=== PATIENT | male | born 1935 | race Caucasian/White ===

== ENCOUNTER 2022-06-09 03:00 | Inpatient (IN) | payer MEDICARE, SELFPAY ==
[2022-06-09] VITALS (16 sets, daily range): BP systolic 140–223; BP diastolic 70–138; PULSE 78–112; RESP 18–24; TEMP 36.5–36.9; O2SAT 94–100; BMI 33.7
--- NOTE | ~2022-06-09 | XR_ITS ---
EXAMINATION: XR chest 2V Exam Date/Time: 06/09/2022 18:35 CDT HISTORY: SOB, rib fx Comparison: None available. RESULT: Lines, tubes, and devices: None. Lungs and pleura: Right middle lobe atelectasis. Bilateral costophrenic angle blunting. Bilateral in terstitial opacities. Cardiothymic silhouette: Stable. Other: No acute osseous or upper abdominal finding. IMPRESSION: Right middle lobe atelectasis, infection not excluded. Likely small bilateral pleural effusions. Diff use interstitial opacities may reflect edema, bronchiolitis, or both. No rib fractures detected. Cons ider radiographs of the ribs for better evaluation. Reviewed, dictated and finalized at location K. IMPRESSION: Right middle lobe atelectasis, infection not excluded. Likely small bilateral p leural effusions. Diffuse interstitial opacities may reflect edema, bronchiolit is, or both. No rib fractures detected. Consider radiographs of the ribs for be tter evaluation.
--- NOTE | ~2022-06-09 | CT_ITS ---
EXAMINATION: CTA chest PE abdomen pel DATE: 06/10/2022 17:49 INDICATION: SOB, concern for DVT TECHNIQUE: Computed tomography angiography (CTA) of the chest was performed with 100 mL Omnipaque-350 intravenous contrast timed to evaluate the pulmonary arteries, followed by portal venous phase imagi ng of the abdomen and pelvis. Coronal maximum intensity projection 3D-reconstructions were created by the technologist. The dose-length product (DLP) was 2446.61 mGy-cm. Automated exposure control and i terative reconstruction technique were employed. COMPARISON: None. FINDINGS: CTPA: Lung parenchyma and airways: Senescent changes. Pleura: Unremarkable. Thoracic inlet, axillae and chest wall: Unremarkable. Thoracic aorta: Aortic ectasia and moderate arch calcification. Mediastinum: Normal. Heart and pericardium: Cardiomegaly. Coronary artery calcifications: Moderate. Thoracic bones: No acute osseous finding. Pulmonary arteries: Study quality: Adequate. No pulmonary emboli detected. ABDOMEN AND PELVIS: Liver: Normal. Biliary/Gallbladder: Gallbladder is normal. No bile duct dilation. Pancreas: No mass or duct dilation. Spleen: Normal. Adrenals:No mass. Kidneys: No mass, stone, or hydronephrosis. GI tract: No small or large bowel dilation. Normal appendix. Diverticulosis without diverticulitis. Mesentery/Peritoneum: No ascites, mass, or free air. Inflammatory stranding and fluid tracking along the inferior aspect of the lateral conal fascia into the periureteral and perivesicular spaces on the left. Retroperitoneum: No mass. Atherosclerotic abdominal aortic and/or arterial calcifications. Pelvis: The bladder is decompressed by a Monroy. Prostatomegaly. Soft Tissues: Left inguinal lymphadenopathy. Abdominopelvic bones: No acute osseous finding. IMPRESSION: No CT evidence of acute pulmonary embolus. Lower abdominal/pelvic peritoneal reflection inflammatory change and fluid, of uncertain significance, possibly postsurgical. Reviewed, dictated and finalized at location K. IMPRESSION: No CT evidence of acute pulmonary embolus. Lower abdominal/pelvic peritoneal re flection inflammatory change and fluid, of uncertain significance, possibly pos tsurgical.
--- NOTE | ~2022-06-09 | US_ITS ---
EXAMINATION: US venous doppler [facility] DATE: 06/10/2022 15:26 INDICATION: Left thigh erythema. TECHNIQUE: Grayscale ultrasound images without and with compression and Doppler ultrasound images of the left lower extremity veins were obtained. COMPARISON: None. FINDINGS: The visualized portions of left common femoral vein, profunda (deep) femoral vein, femoral vein, popl iteal vein, peroneal veins, posterior tibial veins, and greater saphenous vein outflow are patent. IMPRESSION: 1. No deep venous thrombosis. Reviewed, dictated and finalized at location A.
--- NOTE | ~2022-06-09 | CT_ITS ---
EXAMINATION: CT abdomen pelvis wo con DATE: 06/12/2022 14:34 INDICATION: Left retroperitoneal and left pelvic edema. TECHNIQUE: Computed tomography (CT) of the abdomen and pelvis was performed without intravenous contr ast. Automated exposure control and iterative reconstruction technique were employed. The dose-length product was 1590.09 mGy-cm. COMPARISON: CT abdomen and and pelvis 06/10/2022, 06/08/22 FINDINGS: The visualized portions of the lung bases demonstrate septal thickening with a peripheral p redominance associated with groundglass opacities, consistent with chronic interstitial lung disease. A calcified left lung nodule is consistent with old granulomatous disease. There is a 6 mm nodule at minor fissure, likely benign. No pleural effusion. Cardiomegaly is noted. There are coronary artery calcifications. The calcifications aortic valve. No pericardial effusion. The liver demonstrates surf carine nodularity. There is contrast in the gallbladder, which is normal in size. Calcifications in the spleen are consistent with old granulomatous disease. The pancreas and adrenal glands are normal. The re are persistent contrast nephrograms bilaterally, consistent with decreased kidney function. There is a left inguinal hernia containing fat. The bladder is decompressed by a Monroy catheter. The prosta te is mildly enlarged. Stool distends the rectum. There is diverticulosis of the colon without eviden ce of diverticulitis. The appendix is normal. There is asymmetric edema in the left retroperitoneum a nd left extraperitoneal pelvis. There is mild left inguinal lymphadenopathy, likely reactive. There i s no free intraperitoneal fluid. There are bridging endplate osteophytes at multiple levels in the sp ine, consistent with diffuse idiopathic skeletal hyperostosis (DISH). There is severe lumbar spondylo sis. IMPRESSION: 1. Asymmetric edema in the left retroperitoneum and left extraperitoneal pelvis, stable from 06/08/22. 2. Mild left inguinal lymphadenopathy, likely reactive. 3. Left inguinal hernia containing fat. 4. Liver surface nodularity suspicious for cirrhosis. 5. Mild chronic interstitial lung disease. Reviewed, dictated and finalized at location A. IMPRESSION: 1. Asymmetric edema in the left retroperitoneum and left extraperitoneal pelvis , stable from 06/08/22. 2. Mild left inguinal lymphadenopathy, likely reactive. 3. Left inguinal hernia containing fat. 4. Liver surface nodularity suspicious for cirrhosis. 5. Mild chronic interstitial lung disease.
--- NOTE | ~2022-06-09 | XR_ITS ---
EXAMINATION: XR chest 1V portable DATE: 06/10/2022 00:48 INDICATION: Difficulty breathing. TECHNIQUE: A single frontal view of the chest was obtained. COMPARISON: Chest 2 views 06/09/2022 FINDINGS: There are airspace and interstitial opacities in the lungs predominantly involving the mid and lower lung zones with a peripheral predominance. There may be a small left pleural effusion. No p neumothorax. The heart size is normal. There are suture anchors in left humeral head. IMPRESSION: 1. Stable diffuse lung disease, consistent with pulmonary edema versus pneumonia versus chronic inter stitial lung disease. 2. Possible small left pleural effusion. Reviewed, dictated and finalized at location A. IMPRESSION: 1. Stable diffuse lung disease, consistent with pulmonary edema versus pneumoni a versus chronic interstitial lung disease. 2. Possible small left pleural effusion.
--- NOTE | 2022-06-09 02:47 | ADMGEN ---
This patient, George Vallejo, was admitted to IMU Room 206-01 on 06/09/22 at 0223. Patient/family oriented to hospital policies and general routines including ID bracelet, bed and alarms, visiting hours, pain management, procedures, bathroom and other care routines, personal items, smoking policy, room service/diet, and visiting hours. Information on how to activate the Rapid Response Team has been discussed. Patient/Family are encouraged to report perceived risks to care and to ask questions if they do not understand what they are told or what they should do.
[2022-06-09 05:40] LABS: Hematocrit 42.6 % (42.0-52.0); Mean Corpuscular HGB Conc 32.9 g/dl (32-36); Mean Corpuscular Hemoglobin 30.8 pg (26-34); Mean Corpuscular Volume 93.8 fl (80-100); Mean Platelet Volume 10.8 fl (7.4-10.4); Platelet Count Result 163 k/mm3 (150-375); Red Blood Count 4.54 M/mm3 (4.6-6.20); White Blood Count 21.2 K/mm3 (4.5-10.0)
--- NOTE | 2022-06-09 05:41 | PM.IMHP ---
H&P: HPI History of Present Illness Date/Time: 06/09/22 05:41 Chief Complaint: Fall, shortness of breath Narrative: 86-year-old male with a past medical history of chronic atrial fibrillation, borderline diabetes mellitus, essential hypertension, hyperlipidemia, cirrhosis and untreated obstructive sleep apnea who presented to the ER at [facility] in [place] after having a fall, shortness of breath and fever at home. Source of information comes from patient who is a fair historian and records from the transferring hospital. The patient could not really tell me exactly why he went to the outside ER. He stated that the day before he went to the ER he had been rolling around in a chair and had reached for something on a table and had tip to the chair over and fell hard. He does not remember hitting his head or losing consciousness. Patient denied having any chest pain or shortness of breath at the time of my evaluation but imaging at the outside facility demonstrated left 6th and 7th rib fractures. On further questioning he says that he can feel something there but states that is not necessarily painful. He reports that he has been having chest congestion for several months ever since he had COVID. He reports that he is mildly short of breath but does not think that this is much changed recently. He reports that he has chronic nasal congestion that is unchanged for the ?last 70 years.? He denies any history of coronary artery disease but does have history of peripheral vascular disease. He had a recent femoral popliteal bypass at [facility]. He reports he had recent ultrasounds of his right lower extremity that confirm patency of the graft he has not been having any leg pain. He denies any back pain despite having a large bruise across the upper back extending from his left upper trap down to his right mid scapula. He denies any changes in bowel habits. He denies any rashes. ER physician from outside facility noted erythema to the left upper thigh with some increased warmth. The patient denies any known injury or history of infection previously. He has not had any dysuria. Does have frequent urinary frequency specially at night. He denies any weak urine stream hematuria or dysuria. He does have obstructive sleep apnea but refuses CPAP. At the outside ED ER the patient received 1 dose of Rocephin 1 dose of Zosyn and 1 dose of vancomycin. He also received 1 dose of IV Lopressor with improvement in his heart rate from the 120s down to 77. He had a CT of the abdomen and pelvis with contrast that demonstrated mild amount of free fluid in the anterior left pelvis and adjacent to left external iliac artery and vein extending anterior to left psoas muscle. Mild fluid stranding noted in the left inguinal region into the proximal anterior medial thigh that is partially imaged. There is enlarged lymph nodes in this distribution. Small left inguinal hernia containing only fat similar prior exam. Colonic diverticulosis without surrounding inflammation. Acute nondisplaced fractures left anterior 7th and anterior lateral 6th rib with mild subcutaneous contusion. Noncontrast CT of the chest demonstrated rib fractures, linear atelectasis and scarring in the lung bases, no evidence of pneumonia or pneumothorax, minimal interstitial lung disease consistent with prior exam, 1.1 cm nodule in the right minor fissure unchanged. Cardiomegaly, small hiatal hernia, hepatics cyst, hepatic steatosis and DJD. Labs from outside facility were reviewed including lactic acid of 3.9 with repeat lactic of 2 patient received total 1.5 L of [place] 06583 hemoglobin 14.5 platelet count [id number] sodium 137 potassium 3.8 chloride 99 CO2 23 BUN 34 creatinine 1.89 up from the patient's baseline of 1.17 glucose was 202 troponin at the outside facility was 168 with repeat of 312. EKG: AFib RVR Review of Systems Review of Systems: 12 systems were re
[2022-06-09 05:42] LABS: INR 1.6; Prothrombin Time 18.5 Seconds (11.1-14.7)
[2022-06-09 05:43] LABS: Alanine Aminotransferase 43 U/L (6-50); Albumin Level 3.8 g/dL (3.5-5.1); Alkaline Phosphatase 52 U/L (38-126); Anion Gap 10 mmol/L (8-16); Aspartate Amino Transferase 100 U/L (17-59); Bilirubin,Total 1.2 mg/dL (0.2-1.3); Blood Urea Nitrogen 38 mg/dL (9-20); Calcium 8.3 mg/dL (8.4-10.2); Carbon Dioxide 27 mmol/L (22-30); Chloride 98 mmol/L (98-107); Estimated CRCL calculation 46 ml/min; Estimated Glomerular Filt Rate 48; Glucose 365 mg/dL (65-110); Magnesium 1.8 mg/dL (1.6-2.3); Phosphorus 3.4 mg/dL (2.5-4.5); Potassium 3.9 mmol/L (3.4-5.0); Sodium 135 mmol/L (137-145)
[2022-06-09] MEDS: SODIUM CHLORIDE 0.9% IV 1,000 ML 75 ML IV CONT (05:48)
[2022-06-09] MEDS: metroNIDAZOLE 500 MG/ISO 100ML 500 MG/100 ML BAG 100 MG IVPB ×3 (05:48→20:26)
[2022-06-09 06:02] LABS: Band Neutrophils Percent 16 % (0-6); Lymphocytes Absolute Manual 0.84 K/mm3 (1.1-4.5); Monocytes Absolute Manual 0.21 K/mm3 (0.1-0.90); Monocytes Percent Manual 1 % (3-9); Neutrophils Absolute Manual 20.14 K/mm3 (1.3-6.7); Neutrophils Percent Manual 79 % (46-73); Ovalocytes 1+ (NORMAL); Platelet Estimate Adequate (Adequate); Poikilocytosis 1+ (NORMAL); Polychromasia 1+ (NORMAL); Total Cells Counted 100
[2022-06-09 06:03] LABS: Anisocytosis 1+ (NORMAL)
[2022-06-09 06:20] LABS: Lactic Acid Reflex 1.5 mmol/L (0.7-2.0)
[2022-06-09 07:54] LABS: Troponin I 0.141 ng/mL (0.000-0.034)
--- NOTE | 2022-06-09 08:19 | ECG_ITS ---
Measurements Intervals [place] Rate: 93 P: NC: 0 QRS: -22 QRSD: 96 T: 60 QT: 334 QTc: 417 Interpretive Statements ATRIAL FIBRILLATION CANNOT RULE OUT INFERIOR MYOCARDIAL INFARCTION, PROBABLY OLD CANNOT RULE OUT ANTEROSEPTAL MYOCARDIAL INFARCTION , PROBABLY OLD ABNORMAL ECG NO PREVIOUS ECG AVAILABLE FOR COMPARISON Electronically Signed On 06-09-2022 16:27:34 CDT by Ronny Harper M.D.
[2022-06-09 08:23] LABS: Glucose Point of Care 350 mg/dl (65-105)
[2022-06-09 08:59] LABS: Troponin I 0.116 ng/mL (0.000-0.034)
[2022-06-09] MEDS: APIXABAN 5 MG TABLET PO ×2 (12:02→17:34)
[2022-06-09] MEDS: ASPIRIN 81 MG ENTERIC TABLET PO (12:02)
[2022-06-09] MEDS: INSULIN ASPART (*BKC) 100 UNITS/ML SUB-Q ×2 (12:19→17:33)
[2022-06-09 12:34] LABS: Glucose Point of Care 399 mg/dl (65-105)
--- NOTE | 2022-06-09 12:49 | PM.CNCAR ---
Assessment and Plan Assessment and plan (1) Elevated troponin level not due myocardial infarction: Code(s): R77.8 - Other specified abnormalities of plasma proteins Status: Acute Assessment and Plan: Most likely type 2 infarction setting of sepsis, atrial fibrillation with RVR, acute on chronic kidney injury not acute coronary syndrome and/or plaque rupture. 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 He remains on anticoagulation with Eliquis. Without patient to recover clinically. Depending on his history and clinical course ischemic evaluation may be considered most likely an outpatient basis if not performed previously. (2) Permanent atrial fibrillation with rapid ventricular response: Code(s): I48.21 - Permanent atrial fibrillation Status: Acute Assessment and Plan: Heart rate reasonably well controlled male after IV metoprolol. Will continue monitor on telemetry to determine if AV barak blocking atrial be required. Patient has been control without AV barak blocking agents as an outpatient. Check 2D echocardiogram to assess LV size/function, valve pathology, pulmonary pressures and chamber size. Recommendation to follow. 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 (4) Acute on chronic kidney failure: Code(s): N17.9 - Acute kidney failure, unspecified; N18.9 - Chronic kidney disease, unspecified Status: Acute Assessment and Plan: Improving with IV fluids. Continue to monitor closely. (5) Cellulitis of left thigh: Code(s): L03.116 - Cellulitis of left lower limb Status: Acute Assessment and Plan: Management Per primary service. IV antibiotics. Cultures pending. Supportive care. (6) Severe sepsis: Code(s): A41.9 - Sepsis, unspecified organism; R65.20 - Severe sepsis without septic shock Status: Acute Assessment and Plan: As above. Significant leukocytosis, afebrile since admission he has been hemodynamically stable. (7) Peripheral artery disease: Code(s): I73.9 - Peripheral vascular disease, unspecified Status: Acute Assessment and Plan: Status post right lower extremity fem-pop bypass per report. Awaiting further cardiovascular records. History of Present Illness History of Present Illness Consult date/time: Date of service: 06/09/22 12:49 Requesting physician: Rosalva Moya DO Consult reason: atrial fibrillation and Other (Elevated troponin) Reason For Visit: Severe Sepsis,Cellulitis L thigh,Afib w/RVR Narrative: Patient is a very pleasant 86-year-old male with a past medical history significant for persistent atrial fibrillation, peripheral arterial disease status post right lower extremity femoral popliteal bypass February 2022 at [facility] by Dr. Balderas, diabetes mellitus, hypertension, hyperlipidemia, history of untreated LAURA without reported history of CAD and/or CHF who presented to the emergency department as a transfer from [facility] in [place] after complaints of fall, fever and shortness of breath. Date prior to presentation he had fallen over reaching for something on the table after chair tipped following fairly hard. He did not hit his head or lose consciousness. He denies shortness of breath or chest pain upon my questioning. Per electronic medical record review of outside imaging suggested left 6th and 7th rib fractures for which he is generally not aware. He admits to some shortness of breath in the past but no changes of late. He recalls having a heart catheterization but did does not recall what
--- NOTE | 2022-06-09 13:33 | P.PNIM_ITS ---
Progress Note: A&P Assessment and Plan (1) Severe sepsis: Code(s): A41.9 - Sepsis, unspecified organism; R65.20 - Severe sepsis without septic shock Status: Acute Assessment and Plan: Present on admission and supported by leukocytosis, tachypnea, tachycardia, lactic acidosis, acute kidney failure * Blood cultures were obtained from the outside facility and can be followed up by contacting that facility. * Repeat blood cultures collected at this facility are pending * Continue with gentle IV fluid rehydration * Continue IV antibiotics (2) Cellulitis of left thigh: Code(s): L03.116 - Cellulitis of left lower limb Status: Acute Assessment and Plan: The patient is diabetic and has severe sepsis due to left thigh cellulitis. * Antibiotics per antibiotic stewardship guidelines include cefepime, Flagyl and vancomycin. * Monitor the area closely * Supportive care. Analgesics available as needed (3) Acute on chronic kidney failure: Code(s): N17.9 - Acute kidney failure, unspecified; N18.9 - Chronic kidney disease, unspecified Status: Acute Assessment and Plan: Patient's baseline creatinine is 1.17 per report from ER physician. Creatinine at the outside facility was 1.89. * Kendrick to be secondary to severe sepsis * Creatinine is 1.4 today * Continue with IV fluid hydration. 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 Qualified Code(s): E11.65 - Type 2 diabetes mellitus with hyperglycemia Code(s): E11.65 - Type 2 diabetes mellitus with hyperglycemia Status: Acute Assessment and Plan: Blood sugars have been elevated after receiving a 1 time dose of IV Solu-Medrol outside facility * Continue Accu-Cheks, sliding scale insulin, hypoglycemic protocol * Diabetic carbohydrate consistent diet * Add 6 units NovoLog scheduled with meals * Check updated A1c (5) Permanent atrial fibrillation with rapid ventricular response: Code(s): I48.21 - Permanent atrial fibrillation Status: Acute Assessment and Plan: The patient's heart rate is currently controlled. * Continue to monitor on telemetry. * Patient is not on rate/rhythm control medication at home * Received 1 time dose of Lopressor at outside facility with no recurrence of tachycardia. Suspect tachycardia was related to fevers/severe sepsis (6) Elevated troponin level not due myocardial infarction: Code(s): R77.8 - Other specified abnormalities of plasma proteins Status: Acute Assessment and Plan: Kendrick to be due to strain from patient's severe sepsis. * Appreciate cardiology consultation. (7) Rib fracture: Code(s): S22.39XA - Fracture of one rib, unspecified side, initial encounter for closed fracture Status: Acute Assessment and Plan: Secondary to fall * Imaging at outside facility showed acute nondisplaced fractures of the left anterior 7th and anterolateral 6th rib with mild subcutaneous contusion * Supportive care * Incentive spirometry (8) Peripheral artery disease: Code(s): I73.9 - Peripheral vascular disease, unspecified Status: Acute Assessment and Plan: Patient is status post right lower extremity fem-pop bypass * Reports recent ultrasound of right lower extremity that confirmed patency of the graft * No pain in lower extremities
--- NOTE | 2022-06-09 13:33 | PM.IMPN ---
Progress Note: A&P Assessment and Plan (1) Severe sepsis: Code(s): A41.9 - Sepsis, unspecified organism; R65.20 - Severe sepsis without septic shock Status: Acute Assessment and Plan: Present on admission and supported by leukocytosis, tachypnea, tachycardia, lactic acidosis, acute kidney failure Blood cultures were obtained from the outside facility and can be followed up by contacting that facility. Repeat blood cultures collected at this facility are pending Continue with gentle IV fluid rehydration Continue IV antibiotics (2) Cellulitis of left thigh: Code(s): L03.116 - Cellulitis of left lower limb Status: Acute Assessment and Plan: The patient is diabetic and has severe sepsis due to left thigh cellulitis. Antibiotics per antibiotic stewardship guidelines include cefepime, Flagyl and vancomycin. Monitor the area closely Supportive care. Analgesics available as needed (3) Acute on chronic kidney failure: Code(s): N17.9 - Acute kidney failure, unspecified; N18.9 - Chronic kidney disease, unspecified Status: Acute Assessment and Plan: Patient's baseline creatinine is 1.17 per report from ER physician. Creatinine at the outside facility was 1.89. [place] to be secondary to severe sepsis Creatinine is 1.4 today Continue with IV fluid hydration. 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 use: without marine oil terminal superintendent use Qualified Code(s): E11.65 - Type 2 diabetes mellitus with hyperglycemia Code(s): E11.65 - Type 2 diabetes mellitus with hyperglycemia Status: Acute Assessment and Plan: Blood sugars have been elevated after receiving a 1 time dose of IV Solu-Medrol outside facility Continue Accu-Cheks, sliding scale insulin, hypoglycemic protocol Diabetic carbohydrate consistent diet Add 6 units NovoLog scheduled with meals Check updated A1c (5) Permanent atrial fibrillation with rapid ventricular response: Code(s): I48.21 - Permanent atrial fibrillation Status: Acute Assessment and Plan: The patient's heart rate is currently controlled. Continue to monitor on telemetry. Patient is not on rate/rhythm control medication at home Received 1 time dose of Lopressor at outside facility with no recurrence of tachycardia. Suspect tachycardia was related to fevers/severe sepsis (6) Elevated troponin level not due myocardial infarction: Code(s): R77.8 - Other specified abnormalities of plasma proteins Status: Acute Assessment and Plan: [place] to be due to strain from patient's severe sepsis. Appreciate cardiology consultation. (7) Rib fracture: Code(s): S22.39XA - Fracture of one rib, unspecified side, initial encounter for closed fracture Status: Acute Assessment and Plan: Secondary to fall Imaging at outside facility showed acute nondisplaced fractures of the left anterior 7th and anterolateral 6th rib with mild subcutaneous contusion Supportive care Incentive spirometry (8) Peripheral artery disease: Code(s): I73.9 - Peripheral vascular disease, unspecified Status: Acute Assessment and Plan: Patient is status post right lower extremity fem-pop bypass Reports recent ultrasound of right lower extremity that confirmed patency of the graft No pain in lower extremities Subjective Date/time seen: 06/09/22 13:33 Interval history: Date of service: 06/09/2022 George Vallejo is an 86 year old male with a history of hypertension, peripheral artery disease, chronic atrial fibrillation on systemic anticoagulation, cirrhosis, HTN, untreated LAURA who is seen in follow up for sepsis secondary to cellulitis. He denies SOB. Endorses nonproductive cough. Endorses sinus congestion. He previously had fevers and chills th
[2022-06-09 16:43] LABS: Glucose Point of Care 428 mg/dl (65-105)
[2022-06-09] MEDS: INSULIN ASPART (*BKC) 100 UNITS/ML 6 UNITS SUB-Q (17:33)
[2022-06-09 17:39] LABS: Vancomycin Random 7.7 ug/mL (10-20)
[2022-06-09 18:34] LABS: Hemoglobin A1C 7.1 % (<5.7)
[2022-06-09 20:00] LABS: Glucose Point of Care 323 mg/dl (65-105)
[2022-06-09] MEDS: ATORVASTATIN 20 MG TABLET PO (20:28)
[2022-06-09] MEDS: FLUTICASONE PROPIONATE 0.05% NA SPR 16 GM BTL (*BKC) 1 SPRAY NASAL (20:29)
[2022-06-09] MEDS: INSULIN GLARGINE (*BKC) 100 UNITS/ML 17 UNITS SUB-Q (20:29)
[2022-06-10] VITALS (18 sets, daily range): BP systolic 101–207; BP diastolic 60–120; PULSE 59–137; RESP 14–28; TEMP 36.2–36.7; O2SAT 93–99
--- NOTE | 2022-06-10 | ECHO_ITS ---
Patient Info Name: George Vallejo Age: 86 years : 1935 Gender: Male Ht: 72 in Wt: 248 lbs BSA: 2.43 m2 HR: 101 bpm BP: 138 / 92 mmHg Heart Rhythm: Atrial Fibrillation Technical Quality: Fair Exam Date: 06/10/2022 10:47 AM Exam Location: [facility] Pulmonary Patient Status: Inpatient Admit Date: 06/09/2022 Staff Ordering Physician: Jasmyn Amado PA-C Document Imaging Specialist: Melinda Albert RDCS Attending Provider: Jasmyn Amado PA-C Referring Physician: Ingris CHAN; Exam Type: CA echo dop color flow w con Study Info Indications J81.0 - Acute pulmonary edema Complete two-dimensional, color flow and Doppler transthoracic echocardiogram is performed with contrast to opacify the left ventricle and to improve the deliniation of the left ventricle endocardial borders. Contrast/Agitated Saline Contrast/Ag. Saline: Definity Amount: 3.00 ml Administered By: Melinda Albert RDCS Existing IV Access: Yes IV Access Condition: patent with no signs of infiltration Summary 1. Technically difficult study with limited views. 2. Left ventricular chamber dimension is normal. 3. Left ventricular systolic function is normal, estimated at 65-70%. 4. There is no increased left ventricular wall thickness. 5. Left atrial chamber dimension is moderately enlarged. 6. Right atrial chamber dimension is severely enlarged. 7. There is no aortic valve stenosis with a peak velocity of 160.98 cm/s, mean gradient of 4 mmHg, and aortic valve area of 2.44 cm2. 8. There is no aortic valve regurgitation. 9. There is mild aortic valve calcification. 10. There is trace tricuspid valve regurgitation. 11. No pulmonary hypertension, estimated pulmonary arterial systolic pressure is 18 mmHg. 12. There is trace mitral valve regurgitation. Left Ventricle Left ventricular chamber dimension is normal. Left ventricular systolic function is normal, estimated at 65-70%. There is no increased left ventricular wall thickness. The left ventricular diastolic function is indeterminate. Technically difficult study with limited views. Right Ventricle Right ventricular chamber dimension is normal. Right ventricular systolic function is normal. Left Atria Left atrial chamber dimension is moderately enlarged. Right Atria Right atrial chamber dimension is severely enlarged. Aortic Valve The aortic valve is probable trileaflet. There is no aortic valve stenosis with a peak velocity of 160.98 cm/s, mean gradient of 4 mmHg, and aortic valve area of 2.44 cm2. There is no aortic valve regurgitation. There is mild aortic valve calcification. Pulmonic Valve The pulmonic valve is not well visualized. There is trace pulmonic regurgitation. Mitral Valve The mitral valve has thickened leaflets. There is trace mitral valve regurgitation. The mitral valve annulus is mildly calcified. Tricuspid Valve The tricuspid valve leaflets are normal. There is trace tricuspid valve regurgitation. No pulmonary hypertension, estimated pulmonary arterial systolic pressure is 18 mmHg. Pericardium/Pleural The pericardium appears normal. There is no pericardial effusion. Inferior Vena Cava Dilated inferior vena cava with >50% collapse upon inspiration consistent with elevated right atrial pressure, 10 mmHg. Aorta The aortic root size at the sinus of Valsalva is normal. There is moderate aortic atherosclerosis. Left Ventricular Outflow Tract
[2022-06-10] MEDS: hydrALAZINE HCL 20 MG/ML VIAL 10 MG IV PUSH (00:04)
[2022-06-10] MEDS: ACETAMINOPHEN 325 MG TABLET 650 MG PO (00:04)
[2022-06-10] MEDS: IPRATROPIUM BR 0.02% INH SOLN 0.5 MG/2.5 ML VIAL INHALATION (00:15)
[2022-06-10] MEDS: ALBUTEROL SULFATE NEB 2.5 MG/3 ML INH INHALATION ×2 (00:15→00:18)
[2022-06-10] MEDS: ALBUTEROL SULFATE NEB 2.5 MG/3 ML INH 15 MG INHALATION (00:34)
[2022-06-10] MEDS: NITROGLYCERIN OINTMENT 1 INCH DOSE TRANSDERM (00:36)
[2022-06-10] MEDS: METOPROLOL TARTRATE INJ 5 MG/5 ML VIAL (00:51)
--- NOTE | 2022-06-10 00:54 | PCRCNOTE ---
Addendum entered by Deb Brenner, DOOR REPAIRER BUS 06/10/22 01:30: M1A1 Tank Crewman initially called to the room for a stat prn HHN. Pt found to be extremely sob with labored breathing, grunting, using accessory muscles. Little air movement noted upon auscultation with faint expiratory wheezes. 5mg of albuterol given with little to no improvement noted(hour long 15mg hhn initiated as well). MD then called to bedside for further evaluation and testing. Original Note: Hour long HHN discontinued when CXR confirms flash pulm edema. Md at bedside. Pt's Resp status improves significantly with IV lasix. Pt now resting more comfortably on 3l/m nc.
[2022-06-10] MEDS: FUROSEMIDE INJ 40 MG/4 ML VIAL (00:56)
[2022-06-10 01:04] LABS: Alveolar/Arterial O2 Gradient 269.2 mmHg; Base Excess ABG 1.1 mEq/l (+/-2.0); Fractional Inspired Oxygen 60 %; HCO3 ABG 26.8 mEq/l (22.0-26.0); Modified Allen's Test Pass; Oxygen Content ABG 21.7 %vol (16.0-22.0); Oxygen Saturation ABG 97.8 % (95.0-100.0); Oxyhemoglobin 96.6 % THb (90.0-100.0); PCO2 ABG 46.3 mmHg (35.0-45.0); PO2 ABG 107.7 mmHg (80.0-100.0); PO2 FiO2 Ratio Arterial Blood 1.79 %; Site Drawn LEFT RADIAL; Total Hemoglobin 15.9 g/dL (12.0-18.0); pH ABG 7.381 (7.350-7.450)
--- NOTE | 2022-06-10 01:04 | PC.NURSE ---
AT 2325 ON THE . PATIENT C/O HEADACHE/ CHECKED BLOOD PRESSURE AND IT WAS OVER 180 SYSTOLIC. PATIENT WAS GIVEN 10MG IV HYDRALAZINE AND TYLENOL. PATIENT CALLED OUT AGAIN AND WAS MORE SOB WITH USE OF ACCESSORY MUSCLES IN USE. BLOOD PRESSURE IS NOW 223/138. PATIENT WAS BECOMING EXTREMELY FLUSHED IN FACE AND STARTING TO HAVE DIFFICULTY BREATHING. CALLED RESPIRATORY FOR STAT TREATMENT. DR MEDINA WAS CALLED AND NITRO PASTE APPLIED. PATIENT STARTED BECOMING MORE PANICKED EVEN WITH RESPIRATORY TREATMENT. DR MEDINA WAS CALLED AND CAME TO SEE PATIENT. ORDERED 5 OF METOPROLOL IV STAT. PATIENTS BLOOD PRESSURE STARTED COMING DOWN. STAT CHEST XRAY DONE AND SHOWED FLASH PULMONARY EDEMA ACCORDING TO DR MEDINA. 40 IV LASIX GIVEN. PATIENT STARTING TO LOOK BETTER. FACE LESS FLUSHED. NOT HOT HE WAS. RAY CATHETER PLACED BECAUSE OF PATIENTS DISTRESS.
[2022-06-10 01:05] LABS: Device OTHER DEVICE
--- NOTE | 2022-06-10 01:20 | PM.CCN ---
Critical Care Event Note Summary Code activated: No Narrative: 06/10/2022 at approximately 12:30 a.m. Nursing staff called to notify me that the patient had developed respiratory distress. Nursing staff had checked his blood pressure shortly before this and had noted hypertension with blood pressures in the 200 systolic. The patient had p.r.n. hydralazine already ordered 1 dose was administered without improvement. The patient was also noted to have tachycardia with a heart rate of 140s to 150s. He was in AFib RVR but has a known history of chronic atrial fibrillation. Patient denies any chest pain but reports that he just feels bad. A stat nebulizer treatment was ordered any only had minimal improvement a hour long treatment was subsequently ordered. Long Term through the treatment I went down to evaluate the patient as his condition was not improving. The patient was diaphoretic, tachypneic with the abdominal respirations. He had no significant increase in lower extremity swelling. I requested a stat ABG and wanted to nitropaste and 5 mg of IV Lopressor. A stat chest x-ray was obtained and demonstrated pulmonary edema but appropriate medications had already been administered. Within 15 minutes of administering the nitropaste and metoprolol the patient's heart rate had dropped to 94 and patient's blood pressure had dropped to 155/74. Patient's respiratory rate was starting to improve and he reported subjective improvement in symptoms. Assessment and plan: Flash pulmonary edema: Patient has received Lasix, nitro paste and IV Lopressor. Blood pressure and heart rate have improved. Respiratory distress has improved. Chest x-ray personally reviewed and awaiting radiologic interpretation. Will check repeat troponin. Monroy catheter has been placed for monitoring strict I&O's. 35 minutes spent in critical care activities. This case had a high probability of a clinically significant, sudden, or life threatening deterioration of this patient's condition which required my full and direct attention, intervention and personal management. Critical care time: 30 - 74 mins
[2022-06-10 02:21] LABS: Troponin I 0.076 ng/mL (0.000-0.034)
[2022-06-10] MEDS: metroNIDAZOLE 500 MG/ISO 100ML 500 MG/100 ML BAG 100 MG IVPB ×3 (03:32→20:44)
[2022-06-10 05:10] LABS: Hematocrit 42.4 % (42.0-52.0); Hemoglobin 13.8 g/dL (14.0-18.0); Mean Corpuscular HGB Conc 32.5 g/dl (32-36); Mean Corpuscular Hemoglobin 30.3 pg (26-34); Mean Corpuscular Volume 93.2 fl (80-100); Mean Platelet Volume 10.4 fl (7.4-10.4); Platelet Count Result 153 k/mm3 (150-375); Red Blood Count 4.55 M/mm3 (4.6-6.20); Red Cell Distribution Width 13.8 % (11.5-14.5)
[2022-06-10 05:19] LABS: Anion Gap 8 mmol/L (8-16); Blood Urea Nitrogen 41 mg/dL (9-20); Calcium 8.2 mg/dL (8.4-10.2); Carbon Dioxide 28 mmol/L (22-30); Chloride 96 mmol/L (98-107); Estimated CRCL calculation 53 ml/min; Estimated Glomerular Filt Rate 58; Glucose 325 mg/dL (65-110); Potassium 3.4 mmol/L (3.4-5.0); Sodium 132 mmol/L (137-145)
[2022-06-10 05:33] LABS: Troponin I 0.098 ng/mL (0.000-0.034)
[2022-06-10 07:51] LABS: Glucose Point of Care 346 mg/dl (65-105)
[2022-06-10] MEDS: FLUTICASONE PROPIONATE 0.05% NA SPR 16 GM BTL (*BKC) 1 SPRAY NASAL ×2 (08:24→20:46)
[2022-06-10] MEDS: APIXABAN 5 MG TABLET PO ×2 (08:24→17:30)
[2022-06-10] MEDS: ASPIRIN 81 MG ENTERIC TABLET PO (08:40)
[2022-06-10 08:41] LABS: CRP 15.5 mg/dL (<1.0)
[2022-06-10 09:02] LABS: Troponin I 0.149 ng/mL (0.000-0.034)
[2022-06-10] MEDS: INSULIN ASPART (*BKC) 100 UNITS/ML SUB-Q ×3 (09:39→17:32)
[2022-06-10] MEDS: INSULIN ASPART (*BKC) 100 UNITS/ML 6 UNITS SUB-Q ×3 (09:40→17:32)
[2022-06-10 09:44] LABS: Influenza Control Positive
--- NOTE | 2022-06-10 10:44 | PM.PNCARD ---
Progress Note: A&P Assessment and Plan (1) Elevated troponin level not due myocardial infarction: Code(s): R77.8 - Other specified abnormalities of plasma proteins Status: Acute Assessment and Plan: Most likely type 2 infarction setting of sepsis, atrial fibrillation with RVR, acute on chronic kidney injury not acute coronary syndrome and/or plaque rupture. Troponins were drawn last night in the setting of acute respiratory distress and were once again elevated (.076, .098, .149). 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 He remains on anticoagulation with Eliquis for history of atrial fibrillation Depending on his history and clinical course ischemic evaluation may be considered most likely an outpatient basis if not performed previously. Currently not appropriate for invasive evaluation given sepsis with recent positive blood cultures and DNR status Echo is pending (2) Permanent atrial fibrillation with rapid ventricular response: Code(s): I48.21 - Permanent atrial fibrillation Status: Acute Assessment and Plan: Had some tachycardia last night with respiratory distress and mild tachycardia this morning seems to be mostly with activity. Will start low dose metoprolol 12.5mg q12h and observe his response. Continue systemic a/c with apixaban Echo pending. (3) Diabetes mellitus with hyperglycemia: Qualifiers: Diabetes mellitus detention insulin use: without strap machine operator use Diabetes mellitus type: type 2 Qualified Code(s): E11.65 - Type 2 diabetes mellitus with hyperglycemia Code(s): E11.65 - Type 2 diabetes mellitus with hyperglycemia Status: Acute Assessment and Plan: Management per primary service. (4) Acute on chronic kidney failure: Code(s): N17.9 - Acute kidney failure, unspecified; N18.9 - Chronic kidney disease, unspecified Status: Acute (5) Cellulitis of left thigh: Code(s): L03.116 - Cellulitis of left lower limb Status: Acute Assessment and Plan: Management Per primary service. IV antibiotics. Cultures pending. Supportive care. (6) Severe sepsis: Code(s): A41.9 - Sepsis, unspecified organism; R65.20 - Severe sepsis without septic shock Status: Acute Assessment and Plan: As above. Significant leukocytosis, afebrile since admission he has been hemodynamically stable. (7) Peripheral artery disease: Code(s): I73.9 - Peripheral vascular disease, unspecified Status: Acute Assessment and Plan: Status post right lower extremity fem-pop bypass per report. Awaiting further cardiovascular records. Subjective Date/time seen: 06/10/22 10:44 Cardiology follow up for elevated troponin, atrial fibrillation Had an episode of respiratory distress overnight and rapid response was activated. He was given a nebulizer treatment with little improvement. CXR showed pulmonary edema and he was given IV lasix, nitro paste and lopressor. Improved with this. He states he does not recall feeling any chest pain or any other symptoms aside from shortness of breath at that time. Feels okay this morning, not feeling any chest pain or palpitations at this time but still short of breath. Review of Systems Review of Systems: All systems reviewed & are unremarkable except as noted in HPI and below Constitutional: Constitutional: Reports as per HPI and Reports no additional constitutional complaints Eyes: Eyes: Reports as per HPI and Reports no additional eye complaints ENT: Reports system reviewed and no additional complaints, except as documented and Reports as per HPI Cardiovascular: Cardiovascular: Reports as per HPI and Reports no additional cardiovascular complaints Respiratory: Respiratory: Reports as per HPI and Reports no additional respiratory complaints Gastrointestinal: Gastrointestinal: Reports as per HPI and Reports no additional gastrointestinal
[2022-06-10] MEDS: PERFLUTREN LIPID MICROSPHERES 1.5 ML VIAL DILUTED TO 10 ML TOTAL VOLUME IV PUSH (11:08)
--- NOTE | 2022-06-10 11:08 | P.PNIM_ITS ---
Progress Note: A&P Assessment and Plan (1) Septicemia: Code(s): A41.9 - Sepsis, unspecified organism Status: Acute Assessment and Plan: Septic on admission and supported by leukocytosis, tachypnea, tachycardia, lactic acidosis, acute kidney failure * Blood cultures were obtained from the outside facility. Spoke to outside facility today who reports growth of Gram-positive cocci on Gram stain with culture results demonstrating beta hemolytic group B strep. Sensitivity not available at this time. Results being faxed to this facility * Repeat blood cultures collected at this facility on 06/07/2022 are pending, no growth to date * Continue IV antibiotics. Cefepime and Vancomycin are appropriate coverage. * Suspected source of infection is cellulitis of the left thigh * UA with reflex culture is pending * Sputum culture pending, COVID a and influenza pending, Legionella pneumococcal urinary antigens pending * Patient with increased leukocytosis today. Remains afebrile. CRP elevated, continue to trend (2) Cellulitis of left thigh: Code(s): L03.116 - Cellulitis of left lower limb Status: Acute Assessment and Plan: The patient is diabetic and has severe sepsis due to left thigh cellulitis. * Initial CT of the abdomen/pelvis at outside facility shows free fluid in the anterior left pelvis and adjacent to left external iliac artery and vein extending anterior to left psoas muscle.? Mild fluid stranding noted in the left inguinal region into the proximal anterior medial thigh that is partially imaged * Discussed case with Radiology. Disc received from OSH, will upload to PACS system for radiology to review. Dependent on impression, will need to consider repeat CT abd/pelvis vs MRI. Further recommendations pending based on radiology assessment. * Continue antibiotics per antibiotic stewardship guidelines: cefepime, Flagyl and vancomycin. * Supportive care. Analgesics available as needed (3) Pulmonary edema: Code(s): J81.1 - Chronic pulmonary edema Status: Acute Assessment and Plan: Patient with episode of flash pulmonary edema last night * Symptomatic improvement following IV Lasix * Echocardiogram is pending * Appreciate cardiology consultation * Lasix 40 mg IV daily * Monitor intake and output and daily weights * Avoid further IV fluids * Currently requiring 3 L supplemental O2. Wean oxygen as tolerated (4) Acute on chronic kidney failure: Code(s): N17.9 - Acute kidney failure, unspecified; N18.9 - Chronic kidney disease, unspecified Status: Acute Assessment and Plan: Patient's baseline creatinine is 1.17 per report from ER physician. Creatinine at the outside facility was 1.89. * [place] to be secondary to severe sepsis * Improved. Creatinine 1.2 today * No further IV fluid hydration due to pulmonary edema. Encourage appropriate p.o. intake * Monitor BMP (5) Diabetes mellitus with hyperglycemia: Qualifiers: Diabetes mellitus bail bond agent insulin use: without senior living use Diabetes mellitus type: type 2 Qualified Code(s): E11.65 - Type 2 diabetes mellitus with hyperglycemia Code(s): E11.65 - Type 2 diabetes mellitus with hyperglycemia Status: Acute Assessment and Plan: Typically well controlled, A1c is 7.1. Blood sugars have been elevated this admission (ranging 320-340 today). Suspect this to be multifactorial due to receiving IV Solu-Medrol at outside facility as well as severe sepsis * Continue Accu-Cheks, sliding scale insulin, hypoglycemic protocol * Diabetic carbohydrat
--- NOTE | 2022-06-10 11:08 | PM.IMPN ---
Progress Note: A&P Assessment and Plan (1) Septicemia: Code(s): A41.9 - Sepsis, unspecified organism Status: Acute Assessment and Plan: Septic on admission and supported by leukocytosis, tachypnea, tachycardia, lactic acidosis, acute kidney failure Blood cultures were obtained from the outside facility. Spoke to outside facility today who reports growth of Gram-positive cocci on Gram stain with culture results demonstrating beta hemolytic group B strep. Sensitivity not available at this time. Results being faxed to this facility Repeat blood cultures collected at this facility on 06/07/2022 are pending, no growth to date Continue IV antibiotics. Cefepime and Vancomycin are appropriate coverage. Suspected source of infection is cellulitis of the left thigh UA with reflex culture is pending Sputum culture pending, COVID a and influenza pending, Legionella pneumococcal urinary antigens pending Patient with increased leukocytosis today. Remains afebrile. CRP elevated, continue to trend (2) Cellulitis of left thigh: Code(s): L03.116 - Cellulitis of left lower limb Status: Acute Assessment and Plan: The patient is diabetic and has severe sepsis due to left thigh cellulitis. Initial CT of the abdomen/pelvis at outside facility shows free fluid in the anterior left pelvis and adjacent to left external iliac artery and vein extending anterior to left psoas muscle.? Mild fluid stranding noted in the left inguinal region into the proximal anterior medial thigh that is partially imaged Discussed case with Radiology. Disc received from OSH, will upload to PACS system for radiology to review. Dependent on impression, will need to consider repeat CT abd/pelvis vs MRI. Further recommendations pending based on radiology assessment. Continue antibiotics per antibiotic stewardship guidelines: cefepime, Flagyl and vancomycin. Supportive care. Analgesics available as needed (3) Pulmonary edema: Code(s): J81.1 - Chronic pulmonary edema Status: Acute Assessment and Plan: Patient with episode of flash pulmonary edema last night Symptomatic improvement following IV Lasix Echocardiogram is pending Appreciate cardiology consultation Lasix 40 mg IV daily Monitor intake and output and daily weights Avoid further IV fluids Currently requiring 3 L supplemental O2. Wean oxygen as tolerated (4) Acute on chronic kidney failure: Code(s): N17.9 - Acute kidney failure, unspecified; N18.9 - Chronic kidney disease, unspecified Status: Acute Assessment and Plan: Patient's baseline creatinine is 1.17 per report from ER physician. Creatinine at the outside facility was 1.89. [place] to be secondary to severe sepsis Improved. Creatinine 1.2 today No further IV fluid hydration due to pulmonary edema. Encourage appropriate p.o. intake Monitor BMP (5) Diabetes mellitus with hyperglycemia: Qualifiers: Diabetes mellitus mcc insulin use: without mcc use Diabetes mellitus type: type 2 Qualified Code(s): E11.65 - Type 2 diabetes mellitus with hyperglycemia Code(s): E11.65 - Type 2 diabetes mellitus with hyperglycemia Status: Acute Assessment and Plan: Typically well controlled, A1c is 7.1. Blood sugars have been elevated this admission (ranging 320-340 today). 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 Patient had episode of RV
--- NOTE | 2022-06-10 11:08 | IVDEFINITY ---
Prior to administration of IV Definity the patient was educated on the risks and benefits of the imaging enhancing agent including potential adverse side effects. The patient verbalized understanding. Allergies were verified. No exclusion criteria were identified and at least one of the following inclusion criteria were met: 1) physician request, 2) patient technically difficult to image (per the [place] [employer] guidelines of two or more segments not discernable within the apical view), or 3) questionable left ventricular function. ?
[2022-06-10] MEDS: FUROSEMIDE INJ 40 MG/4 ML VIAL IV PUSH (12:20)
[2022-06-10 12:41] LABS: Glucose Point of Care 287 mg/dl (65-105)
[2022-06-10 12:49] LABS: Appearance Urine Cloudy (Clear); Bilirubin Urine Negative (Negative); Blood Urine 3+ (Negative); Color Urine Yellow (Yellow); Glucose Urine UA Negative (Negative); Ketones Urine Trace mg/dL (Negative); Leukocyte Esterase Ur 2+ LEU/UL (Negative); Nitrate Urine Negative (Negative); Protein Urine 2+ mg/dL (Negative); Specific Grav Ur 1.025 (1.001-1.035); Urobilinogen Urine 0.2 mg/dL (<2.0); pH Urine 5.5 (5.0-9.0)
[2022-06-10 12:54] LABS: Mucus Urine Rare /lpf; RBC Urine >75 /hpf (0-2); Squamous Epithelial Cell Urine Rare /hpf (Few); WBC Urine >75 /hpf
[2022-06-10 13:02] LABS: Add Urine Microscopic? YES
[2022-06-10 16:47] LABS: Glucose Point of Care 218 mg/dl (65-105)
[2022-06-10 20:27] LABS: Glucose Point of Care 167 mg/dl (65-105)
[2022-06-10] MEDS: METOPROLOL TARTRATE 12.5 MG TABLET PO (20:45)
[2022-06-10] MEDS: MELATONIN 5 MG TABLET PO (20:45)
[2022-06-10] MEDS: ATORVASTATIN 20 MG TABLET PO (20:46)
[2022-06-10] MEDS: INSULIN GLARGINE (*BKC) 100 UNITS/ML 17 UNITS SUB-Q (20:47)
[2022-06-11] VITALS (15 sets, daily range): BP systolic 135–172; BP diastolic 84–106; PULSE 74–114; RESP 18–24; TEMP 36.3–36.8; O2SAT 92–99
[2022-06-11] MEDS: metroNIDAZOLE 500 MG/ISO 100ML 500 MG/100 ML BAG 100 MG IVPB ×3 (03:56→20:39)
[2022-06-11 05:17] LABS: Hematocrit 42.9 % (42.0-52.0); Mean Corpuscular HGB Conc 32.6 g/dl (32-36); Mean Corpuscular Hemoglobin 30.2 pg (26-34); Mean Corpuscular Volume 92.5 fl (80-100); Mean Platelet Volume 10.3 fl (7.4-10.4); Platelet Count Result 167 k/mm3 (150-375); Red Blood Count 4.64 M/mm3 (4.6-6.20); White Blood Count 13.7 K/mm3 (4.5-10.0)
[2022-06-11 05:33] LABS: Anion Gap 8 mmol/L (8-16); Blood Urea Nitrogen 48 mg/dL (9-20); CRP 5.3 mg/dL (<1.0); Carbon Dioxide 31 mmol/L (22-30); Chloride 98 mmol/L (98-107); Estimated CRCL calculation 46 ml/min; Estimated Glomerular Filt Rate 48; Glucose 145 mg/dL (65-110); Potassium 3.5 mmol/L (3.4-5.0); Sodium 137 mmol/L (137-145)
[2022-06-11 05:49] LABS: Vancomycin Trough 15.6 ug/mL (10.0-20.0)
[2022-06-11 08:26] LABS: Glucose Point of Care 208 mg/dl (65-105)
[2022-06-11] MEDS: FLUTICASONE PROPIONATE 0.05% NA SPR 16 GM BTL (*BKC) 1 SPRAY NASAL ×2 (09:16→20:41)
[2022-06-11] MEDS: INSULIN ASPART (*BKC) 100 UNITS/ML SUB-Q (09:16)
[2022-06-11] MEDS: INSULIN ASPART (*BKC) 100 UNITS/ML 6 UNITS SUB-Q ×3 (09:17→16:47)
[2022-06-11] MEDS: ASPIRIN 81 MG ENTERIC TABLET PO (09:44)
[2022-06-11] MEDS: METOPROLOL TARTRATE 12.5 MG TABLET PO ×2 (09:44→20:40)
[2022-06-11] MEDS: APIXABAN 5 MG TABLET PO ×2 (09:44→16:47)
[2022-06-11] MEDS: FUROSEMIDE INJ 40 MG/4 ML VIAL IV PUSH (10:15)
--- NOTE | 2022-06-11 11:45 | PCOTNOTE ---
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 Patient declined any other additional ADLs or mobility needs at this time. Patient not seen for OT this date. Will continue plan of care 06/12/2022.
--- NOTE | 2022-06-11 12:52 | P.PNIM_ITS ---
Progress Note: A&P Assessment and Plan (1) Septicemia: Code(s): A41.9 - Sepsis, unspecified organism Status: Acute Assessment and Plan: Septic on admission and supported by leukocytosis, tachypnea, tachycardia, lactic acidosis, acute kidney failure * Blood cultures were obtained from the outside facility. Spoke to outside facility today who reports growth of Gram-positive cocci on Gram stain with culture results demonstrating beta hemolytic group B strep. Sensitivity not available at this time. Results being faxed to this facility * Repeat blood cultures collected at this facility on 06/07/2022 are pending, no growth to date * Continue IV antibiotics. Cefepime and Vancomycin and Flagyl. * Suspected source of infection is cellulitis of the left thigh * UA with reflex culture is pending (2) Cellulitis of left thigh: Code(s): L03.116 - Cellulitis of left lower limb Status: Acute Assessment and Plan: The patient is diabetic and has severe sepsis due to left thigh cellulitis. * Initial CT of the abdomen/pelvis at outside facility shows free fluid in the anterior left pelvis and adjacent to left external iliac artery and vein extending anterior to left psoas muscle.? Mild fluid stranding noted in the left inguinal region into the proximal anterior medial thigh that is partially imaged * Discussed case with Radiology. Disc received from OSH, will upload to PACS system for radiology to review. Dependent on impression, will need to consider repeat CT abd/pelvis vs MRI. Further recommendations pending based on radiology assessment. * Continue antibiotics per antibiotic stewardship guidelines: cefepime, Flagyl and vancomycin. * Supportive care. Analgesics available as needed (3) Pulmonary edema: Code(s): J81.1 - Chronic pulmonary edema Status: Acute Assessment and Plan: Patient with episode of flash pulmonary edema last night * Symptomatic improvement following IV Lasix * Echocardiogram is pending * Appreciate cardiology consultation * Lasix 40 mg IV daily * Monitor intake and output and daily weights * Avoid further IV fluids * Currently requiring 1 L supplemental O2. Wean oxygen as tolerated (4) Acute on chronic kidney failure: Code(s): N17.9 - Acute kidney failure, unspecified; N18.9 - Chronic kidney disease, unspecified Status: Acute Assessment and Plan: Patient's baseline creatinine is 1.17 per report from ER physician. Creatinine at the outside facility was 1.89. * [place] to be secondary to severe sepsis * Improved. Creatinine 1.2 today * No further IV fluid hydration due to pulmonary edema. Encourage appropriate p.o. intake * Monitor BMP (5) Diabetes mellitus with hyperglycemia: Qualifiers: Diabetes mellitus type: type 2 Diabetes mellitus long term care administrator insulin use: without correction use Qualified Code(s): E11.65 - Type 2 diabetes mellitus with hyperglycemia Code(s): E11.65 - Type 2 diabetes mellitus with hyperglycemia Status: Acute Assessment and Plan: Typically well controlled, A1c is 7.1. Blood sugars have been elevated this admission (ranging 320-340 today). Suspect this to be multifactorial due to receiving IV Solu-Medrol at outside facility as well as severe sepsis * Continue Accu-Cheks, sliding scale insulin, hypoglycemic protocol * Diabetic carbohydrate consistent diet * 6 units NovoLog scheduled with meals * 17 units Lantus qHS * Monitor glucose trends and adjust insulin as needed (6) Permanent atrial fibrillation with rapid ventricular response:
--- NOTE | 2022-06-11 12:52 | PM.IMPN ---
Progress Note: A&P Assessment and Plan (1) Septicemia: Code(s): A41.9 - Sepsis, unspecified organism Status: Acute Assessment and Plan: Septic on admission and supported by leukocytosis, tachypnea, tachycardia, lactic acidosis, acute kidney failure Blood cultures were obtained from the outside facility. Spoke to outside facility today who reports growth of Gram-positive cocci on Gram stain with culture results demonstrating beta hemolytic group B strep. Sensitivity not available at this time. Results being faxed to this facility Repeat blood cultures collected at this facility on 06/07/2022 are pending, no growth to date Continue IV antibiotics. Cefepime and Vancomycin and Flagyl. Suspected source of infection is cellulitis of the left thigh UA with reflex culture is pending (2) Cellulitis of left thigh: Code(s): L03.116 - Cellulitis of left lower limb Status: Acute Assessment and Plan: The patient is diabetic and has severe sepsis due to left thigh cellulitis. Initial CT of the abdomen/pelvis at outside facility shows free fluid in the anterior left pelvis and adjacent to left external iliac artery and vein extending anterior to left psoas muscle.? Mild fluid stranding noted in the left inguinal region into the proximal anterior medial thigh that is partially imaged Discussed case with Radiology. Disc received from OSH, will upload to PACS system for radiology to review. Dependent on impression, will need to consider repeat CT abd/pelvis vs MRI. Further recommendations pending based on radiology assessment. Continue antibiotics per antibiotic stewardship guidelines: cefepime, Flagyl and vancomycin. Supportive care. Analgesics available as needed (3) Pulmonary edema: Code(s): J81.1 - Chronic pulmonary edema Status: Acute Assessment and Plan: Patient with episode of flash pulmonary edema last night Symptomatic improvement following IV Lasix Echocardiogram is pending Appreciate cardiology consultation Lasix 40 mg IV daily Monitor intake and output and daily weights Avoid further IV fluids Currently requiring 1 L supplemental O2. Wean oxygen as tolerated (4) Acute on chronic kidney failure: Code(s): N17.9 - Acute kidney failure, unspecified; N18.9 - Chronic kidney disease, unspecified Status: Acute Assessment and Plan: Patient's baseline creatinine is 1.17 per report from ER physician. Creatinine at the outside facility was 1.89. [place] to be secondary to severe sepsis Improved. Creatinine 1.2 today No further IV fluid hydration due to pulmonary edema. Encourage appropriate p.o. intake Monitor BMP (5) Diabetes mellitus with hyperglycemia: Qualifiers: Diabetes mellitus type: type 2 Diabetes mellitus rat exterminator insulin use: without rat exterminator use Qualified Code(s): E11.65 - Type 2 diabetes mellitus with hyperglycemia Code(s): E11.65 - Type 2 diabetes mellitus with hyperglycemia Status: Acute Assessment and Plan: Typically well controlled, A1c is 7.1. Blood sugars have been elevated this admission (ranging 320-340 today). 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 Patient had episode of RVR last night with heart rate in the 140s-150s. Resolved after receiving 5 mg IV Lopressor Rate is controlled today Continue to monitor on telemetry. Patient is not on rate/rhythm control medication at home
[2022-06-11 13:10] LABS: Glucose Point of Care 194 mg/dl (65-105)
--- NOTE | 2022-06-11 15:17 | PM.PNCARD ---
Progress Note: A&P Assessment and Plan (1) Elevated troponin level not due myocardial infarction: Code(s): R77.8 - Other specified abnormalities of plasma proteins Status: Acute Assessment and Plan: Most likely type 2 infarction setting of sepsis, atrial fibrillation with RVR, acute on chronic kidney injury not acute coronary syndrome and/or plaque rupture. Troponins were drawn last night in the setting of acute respiratory distress and were once again elevated (.076, .098, .149). Review prior records from his micro photographer when available as requested. He remains on anticoagulation with Eliquis for history of atrial fibrillation Depending on his history and clinical course ischemic evaluation may be considered most likely an outpatient basis if not performed previously. Currently not appropriate for invasive evaluation given sepsis with recent positive blood cultures and DNR status Echo reviewed. EF 65-70% normal pulmonary pressures. No significant valvular heart disease. No aortic stenosis. Moderate left atrial and severe right atrial enlargement. (2) Permanent atrial fibrillation with rapid ventricular response: Code(s): I48.21 - Permanent atrial fibrillation Status: Acute Assessment and Plan: Heart rate reasonably controlled Continue metoprolol 12.5mg q12h Continue systemic a/c with apixaban monitor for bleeding. (3) Diabetes mellitus with hyperglycemia: Qualifiers: Diabetes mellitus type: type 2 Diabetes mellitus terminal manager insulin use: without terminal manager use Qualified Code(s): E11.65 - Type 2 diabetes mellitus with hyperglycemia Code(s): E11.65 - Type 2 diabetes mellitus with hyperglycemia Status: Acute Assessment and Plan: Management per primary service. (4) Acute on chronic kidney failure: Code(s): N17.9 - Acute kidney failure, unspecified; N18.9 - Chronic kidney disease, unspecified Status: Acute Assessment and Plan: Monitor closely. Continue IV diuresis. Patient is clinically improving. Monitor input and output very closely, daily weight. (5) Hypertension: Code(s): I10 - Essential (primary) hypertension Status: Acute Assessment and Plan: Patient with flash pulmonary edema secondary to hypertensive urgency evening before last improved with IV diuresis. BP variable but still elevated at times. He is not currently on antihypertensive therapy. Add amlodipine 2.5 mg daily at least and observe tolerance to avoid symptomatic hypotension reduce risk for hypertensive urgency. (6) Cellulitis of left thigh: Code(s): L03.116 - Cellulitis of left lower limb Status: Acute Assessment and Plan: Management Per primary service. IV antibiotics. Cultures pending. Supportive care. (7) Severe sepsis: Code(s): A41.9 - Sepsis, unspecified organism; R65.20 - Severe sepsis without septic shock Status: Acute Assessment and Plan: Resolved. Significant leukocytosis, afebrile since admission he has been hemodynamically stable. (8) Peripheral artery disease: Code(s): I73.9 - Peripheral vascular disease, unspecified Status: Acute Assessment and Plan: Status post right lower extremity fem-pop bypass per report. Still awaiting cardiovascular records. Request sent once again. Subjective Date/time seen: Date of service: 06/11/22 15:17 Follow-up for atrial fibrillation, CHF Patient states he is feeling better. Denies significant shortness of breath at this time. Denies chest pain aside from that noted with deep breathing, coughing or moving related to his rib fractures. No new issues overnight. BP elevated, variable but improved overall. Review of Systems Review of Systems: All systems reviewed & are unremarkable except as noted in HPI and below Constitutional: Constitutional: Reports as per HPI and Reports no additional constitutional complaints Eyes: Eyes:
[2022-06-11 16:20] LABS: Glucose Point of Care 147 mg/dl (65-105)
[2022-06-11] MEDS: amLODIPine BESYLATE 2.5 MG TABLET PO (16:47)
[2022-06-11 18:43] LABS: SARS-CoV-2 RNA PCR Negative
[2022-06-11 20:25] LABS: Glucose Point of Care 161 mg/dl (65-105)
[2022-06-11] MEDS: ATORVASTATIN 20 MG TABLET PO (20:40)
[2022-06-11] MEDS: MELATONIN 5 MG TABLET PO (20:41)
[2022-06-11] MEDS: INSULIN GLARGINE (*BKC) 100 UNITS/ML 17 UNITS SUB-Q (20:41)
[2022-06-11] MEDS: ALBUTEROL SULFATE NEB 2.5 MG/3 ML INH INHALATION (21:35)
[2022-06-11] MEDS: IPRATROPIUM BR 0.02% INH SOLN 0.5 MG/2.5 ML VIAL INHALATION (21:35)
[2022-06-11] MEDS: traZODone HCL 50 MG TABLET PO (23:54)
[2022-06-12] VITALS (13 sets, daily range): BP systolic 124–178; BP diastolic 63–89; PULSE 63–98; RESP 18–24; TEMP 35.9–36.9; O2SAT 90–97
[2022-06-12] MEDS: metroNIDAZOLE 500 MG/ISO 100ML 500 MG/100 ML BAG 100 MG IVPB ×3 (04:21→21:36)
[2022-06-12 08:04] LABS: Glucose Point of Care 154 mg/dl (65-105)
[2022-06-12] MEDS: INSULIN ASPART (*BKC) 100 UNITS/ML 6 UNITS SUB-Q ×3 (08:40→17:12)
[2022-06-12] MEDS: FLUTICASONE PROPIONATE 0.05% NA SPR 16 GM BTL (*BKC) 1 SPRAY NASAL ×2 (08:43→21:36)
[2022-06-12] MEDS: METOPROLOL TARTRATE 12.5 MG TABLET PO ×2 (08:44→21:39)
[2022-06-12] MEDS: amLODIPine BESYLATE 2.5 MG TABLET PO (08:44)
[2022-06-12] MEDS: FUROSEMIDE INJ 40 MG/4 ML VIAL IV PUSH (08:45)
[2022-06-12] MEDS: ASPIRIN 81 MG ENTERIC TABLET PO (08:45)
[2022-06-12] MEDS: APIXABAN 5 MG TABLET PO ×2 (08:45→17:13)
[2022-06-12 11:37] LABS: Glucose Point of Care 272 mg/dl (65-105)
[2022-06-12] MEDS: INSULIN ASPART (*BKC) 100 UNITS/ML SUB-Q (11:51)
[2022-06-12] MEDS: MAG HYDROX/AL HYDROX/SIMETH 30 ML UDC PO (11:59)
--- NOTE | 2022-06-12 12:13 | PM.PNCARD ---
Progress Note: A&P Assessment and Plan (1) Elevated troponin level not due myocardial infarction: Code(s): R77.8 - Other specified abnormalities of plasma proteins <RAMONA Kidd - Last Filed: 06/12/22 13:55> Status: Acute <RAMONA Kidd - Last Filed: 06/12/22 13:55> Assessment and Plan: Most likely type 2 infarction setting of sepsis, atrial fibrillation with RVR, acute on chronic kidney injury not acute coronary syndrome and/or plaque rupture. Troponins were drawn last night in the setting of acute respiratory distress and were once again elevated (.076, .098, .149). Review prior records from his supervisor bridges and buildings when available as requested. According to recent office note rec'd from Dameon ASHBY he had a negative nuclear stress test recently but the results of that test were not sent to us. He remains on anticoagulation with Eliquis for history of atrial fibrillation Depending on his history and clinical course ischemic evaluation may be considered most likely an outpatient basis if not performed previously. Currently not appropriate for invasive evaluation given sepsis with recent positive blood cultures and DNR status Echo reviewed. EF 65-70% normal pulmonary pressures. No significant valvular heart disease. No aortic stenosis. Moderate left atrial and severe right atrial enlargement. <RAMONA Kidd - Last Filed: 06/12/22 13:55> (2) Permanent atrial fibrillation with rapid ventricular response: Code(s): I48.21 - Permanent atrial fibrillation <RAMONA Kidd - Last Filed: 06/12/22 13:55> Status: Acute <RAMONA Kidd - Last Filed: 06/12/22 13:55> Assessment and Plan: Heart rate reasonably controlled Continue metoprolol 12.5mg q12h Continue systemic a/c with apixaban monitor for bleeding. <RAMONA Kidd - Last Filed: 06/12/22 13:55> (3) Diabetes mellitus with hyperglycemia: Qualifiers: Diabetes mellitus halfway insulin use: without halfway use Diabetes mellitus type: type 2 Qualified Code(s): E11.65 - Type 2 diabetes mellitus with hyperglycemia <RAMONA Kidd - Last Filed: 06/12/22 13:55> Code(s): E11.65 - Type 2 diabetes mellitus with hyperglycemia <RAMONA Kidd - Last Filed: 06/12/22 13:55> Status: Acute <RAMONA Kidd - Last Filed: 06/12/22 13:55> Assessment and Plan: Management per primary service. <RAMONA Kidd - Last Filed: 06/12/22 13:55> (4) Acute on chronic kidney failure: Code(s): N17.9 - Acute kidney failure, unspecified; N18.9 - Chronic kidney disease, unspecified <RAMONA Kidd - Last Filed: 06/12/22 13:55> Status: Acute <RAMONA Kidd - Last Filed: 06/12/22 13:55> Assessment and Plan: Monitor closely. Continue IV diuresis. Patient is clinically improving. Monitor input and output very closely, daily weight. <RAMONA Kidd - Last Filed: 06/12/22 13:55> (5) Hypertension: Code(s): I10 - Essential (primary) hypertension <RAMONA Kidd - Last Filed: 06/12/22 13:55> Status: Acute <RAMONA Kidd - Last Filed: 06/12/22 13:55> Assessment and Plan: Patient with flash pulmonary edema secondary to hypertensive urgency evening before last improved with IV diuresis. BP variable but still elevated at times. Continue amlodipine. <RAMONA Kidd - Last Filed: 06/12/22 13:55> (6) Cellulitis of left thigh: Code(s): L03.116 - Cellulitis of left lower limb <RAMONA Kidd - Last Filed: 06/12/22 13:55> Status: Acute <RAMONA Kidd - Last Filed: 06/12/22 13:55> Assessment and Plan: Management Per primary service. IV antibiotics. Cultures pending. Supportive care. <Mary Ann Rojas APN-C - Last Filed: 06/12/22 13:55> (7) Severe sepsis: Code(s): A41.9 - Sepsis, unspecifi
--- NOTE | 2022-06-12 12:28 | PM.IMPN ---
Progress Note: A&P Assessment and Plan (1) Septicemia: Code(s): A41.9 - Sepsis, unspecified organism Status: Acute Assessment and Plan: Septic on admission and supported by leukocytosis, tachypnea, tachycardia, lactic acidosis, acute kidney failure Blood cultures were obtained from the outside facility. Spoke to outside facility today who reports growth of Gram-positive cocci on Gram stain with culture results demonstrating beta hemolytic group B strep. Sensitivity not available at this time. Results being faxed to this facility Repeat blood cultures collected at this facility on 06/07/2022 are pending, no growth to date Continue IV antibiotics. Cefepime and Vancomycin and Flagyl. Suspected source of infection is cellulitis of the left thigh (2) Cellulitis of left thigh: Code(s): L03.116 - Cellulitis of left lower limb Status: Acute Assessment and Plan: The patient is diabetic and has severe sepsis due to left thigh cellulitis. Initial CT of the abdomen/pelvis at outside facility shows free fluid in the anterior left pelvis and adjacent to left external iliac artery and vein extending anterior to left psoas muscle.? Mild fluid stranding noted in the left inguinal region into the proximal anterior medial thigh that is partially imaged Discussed case with Radiology. Disc received from OSH, will upload to PACS system for radiology to review. Dependent on impression, will need to consider repeat CT abd/pelvis vs MRI. Will get follow-up CT scan Continue antibiotics per antibiotic stewardship guidelines: cefepime, Flagyl and vancomycin. Supportive care. Analgesics available as needed (3) Pulmonary edema: Code(s): J81.1 - Chronic pulmonary edema Status: Acute Assessment and Plan: Patient with episode of flash pulmonary edema last night improved (4) Acute on chronic kidney failure: Code(s): N17.9 - Acute kidney failure, unspecified; N18.9 - Chronic kidney disease, unspecified Status: Acute Assessment and Plan: Monitor (5) Diabetes mellitus with hyperglycemia: Qualifiers: Diabetes mellitus type: type 2 Diabetes mellitus senior care insulin use: without senior care use Qualified Code(s): E11.65 - Type 2 diabetes mellitus with hyperglycemia Code(s): E11.65 - Type 2 diabetes mellitus with hyperglycemia Status: Acute Assessment and Plan: Continue insulin. Monitor blood sugars (6) Permanent atrial fibrillation with rapid ventricular response: Code(s): I48.21 - Permanent atrial fibrillation Status: Acute Assessment and Plan: The patient's heart rate is currently controlled. Patient had episode of RVR last night with heart rate in the 140s-150s. Resolved after receiving 5 mg IV Lopressor Rate is controlled today Continue to monitor on telemetry. Patient is not on rate/rhythm control medication at home Consider addition of metoprolol. Will defer to Cardiology. Appreciate consultation. (7) Elevated troponin level not due myocardial infarction: Code(s): R77.8 - Other specified abnormalities of plasma proteins Status: Acute Assessment and Plan: No further workup indicated at this time (8) Rib fracture: Code(s): S22.39XA - Fracture of one rib, unspecified side, initial encounter for closed fracture Status: Acute Assessment and Plan: Secondary to fall Imaging at outside facility showed acute nondisplaced fractures of the left anterior 7th and anterolateral 6th rib with mild subcutaneous contusion Supportive care Incentive spirometry (9) Peripheral artery disease: Code(s): I73.9 - Peripheral vascular disease, unspecified Status: Acute Assessment and Plan: Patient is status post right lower extremity fem-pop bypass Reports recent ultrasound of right lower extremity that confirmed patency of the graft No pain in lower e
[2022-06-12 16:47] LABS: Glucose Point of Care 145 mg/dl (65-105)
[2022-06-12] MEDS: hydrALAZINE HCL 20 MG/ML VIAL 10 MG IV PUSH (17:12)
--- NOTE | 2022-06-12 17:49 | PC.NURSE ---
patient transferred to room 307-1 via bed. family at bedside
--- NOTE | 2022-06-12 17:59 | PC.NURSE ---
This patient, George Vallejo, was transferred to [facility] on 06/12/22 at 1740. Personal belongings sent with patient. Report given to Devaughn. Appropriate documentation sent with patient.
[2022-06-12] MEDS: INSULIN GLARGINE (*BKC) 100 UNITS/ML 17 UNITS SUB-Q (20:18)
[2022-06-12 21:21] LABS: Glucose Point of Care 170 mg/dl (65-105)
--- NOTE | 2022-06-12 21:32 | PC.NURSE ---
Patient missing all evening oral and IV medication post transfer to 3 med surg from IMU. Waiting for pharmacy to send medications; flagyl given late @ 2135.
[2022-06-12] MEDS: ATORVASTATIN 20 MG TABLET PO (21:36)
[2022-06-12] MEDS: MELATONIN 5 MG TABLET PO (21:37)
[2022-06-13] VITALS (8 sets, daily range): BP systolic 129–176; BP diastolic 74–95; PULSE 60–94; RESP 16–20; TEMP 35.9–36.3; O2SAT 91–98
[2022-06-13] MEDS: metroNIDAZOLE 500 MG/ISO 100ML 500 MG/100 ML BAG 100 MG IVPB (04:05)
[2022-06-13 05:23] LABS: Hematocrit 45.2 % (42.0-52.0); Hemoglobin 14.4 g/dL (14.0-18.0); Mean Corpuscular HGB Conc 31.9 g/dl (32-36); Mean Corpuscular Hemoglobin 29.9 pg (26-34); Mean Corpuscular Volume 93.8 fl (80-100); Mean Platelet Volume 10.4 fl (7.4-10.4); Platelet Count Result 169 k/mm3 (150-375); Red Blood Count 4.82 M/mm3 (4.6-6.20); Red Cell Distribution Width 13.8 % (11.5-14.5); White Blood Count 11.1 K/mm3 (4.5-10.0)
[2022-06-13 05:36] LABS: Anion Gap 7 mmol/L (8-16); Blood Urea Nitrogen 49 mg/dL (9-20); Calcium 7.9 mg/dL (8.4-10.2); Carbon Dioxide 31 mmol/L (22-30); Chloride 99 mmol/L (98-107); Estimated CRCL calculation 40 ml/min; Estimated Glomerular Filt Rate 41; Glucose 156 mg/dL (65-110); Potassium 3.1 mmol/L (3.4-5.0); Sodium 137 mmol/L (137-145)
[2022-06-13 08:17] LABS: Glucose Point of Care 156 mg/dl (65-105)
[2022-06-13] MEDS: APIXABAN 5 MG TABLET PO ×2 (08:36→16:36)
[2022-06-13] MEDS: INSULIN ASPART (*BKC) 100 UNITS/ML 6 UNITS SUB-Q ×3 (08:36→16:36)
[2022-06-13] MEDS: ASPIRIN 81 MG ENTERIC TABLET PO (08:36)
[2022-06-13] MEDS: POTASSIUM CHLORIDE 20 MEQ TABLET 40 MEQ PO (08:36)
[2022-06-13] MEDS: amLODIPine BESYLATE 2.5 MG TABLET PO (08:36)
[2022-06-13] MEDS: METOPROLOL TARTRATE 12.5 MG TABLET PO ×2 (08:36→20:12)
[2022-06-13] MEDS: FUROSEMIDE INJ 40 MG/4 ML VIAL IV PUSH (08:37)
[2022-06-13] MEDS: FLUTICASONE PROPIONATE 0.05% NA SPR 16 GM BTL (*BKC) 1 SPRAY NASAL ×2 (08:37→20:12)
--- NOTE | 2022-06-13 10:29 | PM.PNCARD ---
Progress Note: A&P Assessment and Plan (1) Elevated troponin level not due myocardial infarction: Code(s): R77.8 - Other specified abnormalities of plasma proteins Status: Acute Assessment and Plan: Most likely type 2 infarction setting of sepsis, atrial fibrillation with RVR, acute on chronic kidney injury not acute coronary syndrome and/or plaque rupture. 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 According to recent office note rec'd from Dameon ASHBY he had a negative nuclear stress test recently but the results of that test were not sent to us. He remains on anticoagulation with Eliquis for history of atrial fibrillation Depending on his history and clinical course ischemic evaluation may be considered most likely an outpatient basis if not performed previously. Currently not appropriate for invasive evaluation given sepsis with recent positive blood cultures and DNR status Echo reviewed. EF 65-70% normal pulmonary pressures. No significant valvular heart disease. No aortic stenosis. Moderate left atrial and severe right atrial enlargement. (2) Permanent atrial fibrillation with rapid ventricular response: Code(s): I48.21 - Permanent atrial fibrillation Status: Acute Assessment and Plan: Heart rate reasonably controlled Continue metoprolol 12.5mg q12h Continue systemic a/c with apixaban monitor for bleeding. (3) Diabetes mellitus with hyperglycemia: Qualifiers: Diabetes mellitus mcfp insulin use: without mcfp use Diabetes mellitus type: type 2 Qualified Code(s): E11.65 - Type 2 diabetes mellitus with hyperglycemia Code(s): E11.65 - Type 2 diabetes mellitus with hyperglycemia Status: Acute Assessment and Plan: Management per primary service. (4) Acute on chronic kidney failure: Code(s): N17.9 - Acute kidney failure, unspecified; N18.9 - Chronic kidney disease, unspecified Status: Acute Assessment and Plan: Monitor closely. Will shift to p.o. furosemide today. Patient is clinically improving. Monitor input and output very closely, daily weight. (5) Hypertension: Code(s): I10 - Essential (primary) hypertension Status: Acute Assessment and Plan: BP variable but still elevated at times. Continue amlodipine. (6) Cellulitis of left thigh: Code(s): L03.116 - Cellulitis of left lower limb Status: Acute Assessment and Plan: Management Per primary service. IV antibiotics. Cultures pending. Supportive care. (7) Severe sepsis: Code(s): A41.9 - Sepsis, unspecified organism; R65.20 - Severe sepsis without septic shock Status: Acute Assessment and Plan: Resolved. Significant leukocytosis, afebrile since admission he has been hemodynamically stable. (8) Peripheral artery disease: Code(s): I73.9 - Peripheral vascular disease, unspecified Status: Acute Assessment and Plan: Status post right lower extremity fem-pop bypass per report. Cardiovascular records requested once again, rec'd office note but no diagnostic testing results Subjective Date/time seen: 06/13/22 10:29 Cardiology follow up He state he is feeling much better today. His breathing has improved. No palpitations, shortness of breath. Review of Systems Review of Systems: All systems reviewed & are unremarkable except as noted in HPI and below Constitutional: Constitutional: Reports as per HPI and Reports no additional constitutional complaints Eyes: Eyes: Reports as per HPI and Reports no additional eye complaints ENT: Reports system reviewed and no additional complaints, except as documented and Reports as per HPI Cardiovascular: Cardiovascular: Reports as per HPI and Reports no additional cardiovascular complaints Respiratory: Respiratory: Reports as per HPI and Reports no additional respiratory complaints Gastrointestinal: Gastrointesti
--- NOTE | 2022-06-13 10:54 | PM.IMPN ---
Progress Note: A&P Assessment and Plan (1) Septicemia: Code(s): A41.9 - Sepsis, unspecified organism Status: Acute Assessment and Plan: Sepsis, present on admission. Now resolved. (2) Cellulitis of left thigh: Code(s): L03.116 - Cellulitis of left lower limb Status: Acute Assessment and Plan: The patient is diabetic and has severe sepsis due to left thigh cellulitis. Initial CT of the abdomen/pelvis at outside facility shows free fluid in the anterior left pelvis and adjacent to left external iliac artery and vein extending anterior to left psoas muscle.? Mild fluid stranding noted in the left inguinal region into the proximal anterior medial thigh that is partially imaged - Repeat CT scan done on June 12, 2022 shows fluid but no definite abscess or any concern for acute issues in the abdomen. Will adjust antibiotics. (3) Pulmonary edema: Code(s): J81.1 - Chronic pulmonary edema Status: Acute Assessment and Plan: Patient with episode of flash pulmonary edema last night improved (4) Acute on chronic kidney failure: Code(s): N17.9 - Acute kidney failure, unspecified; N18.9 - Chronic kidney disease, unspecified Status: Acute Assessment and Plan: Monitor (5) Diabetes mellitus with hyperglycemia: Qualifiers: Diabetes mellitus type: type 2 Diabetes mellitus terminal supervisor insulin use: without terminal supervisor use Qualified Code(s): E11.65 - Type 2 diabetes mellitus with hyperglycemia Code(s): E11.65 - Type 2 diabetes mellitus with hyperglycemia Status: Acute Assessment and Plan: Continue insulin. Monitor blood sugars (6) Permanent atrial fibrillation with rapid ventricular response: Code(s): I48.21 - Permanent atrial fibrillation Status: Acute Assessment and Plan: Monitor (7) Rib fracture: Code(s): S22.39XA - Fracture of one rib, unspecified side, initial encounter for closed fracture Status: Acute Assessment and Plan: Secondary to fall Imaging at outside facility showed acute nondisplaced fractures of the left anterior 7th and anterolateral 6th rib with mild subcutaneous contusion Supportive care Incentive spirometry (8) Peripheral artery disease: Code(s): I73.9 - Peripheral vascular disease, unspecified Status: Acute Assessment and Plan: Patient is status post right lower extremity fem-pop bypass Reports recent ultrasound of right lower extremity that confirmed patency of the graft No pain in lower extremities Subjective Date/time seen: 06/13/22 10:54 patient reports that he feels weak today. Exam Narrative: General: Well-nourished, well-appearing 86-year-old male, sitting up in bed, comfortable, NARD Neuro: awake, alert and oriented x4, speech clear, no focal neuro deficits noted HEENMT: normocephalic, atraumatic, EOMI, sclerae anicteric, moist oral mucosa Respiratory: Bibasilar crackles, able to speak in complete sentences, minimally increased work of breathing Cardio: regular rate, regular rhythm with S1-S2 Abdomen: nondistended, normoactive bowel sounds, soft, nontender to palpation Extremities: Chronic appearing discoloration of bilateral lower extremities, left medial thigh with blanchable faint pink erythema, no warmth or tenderness to palpation, area is not firm or fluctuant Skin: Ecchymosis of left lateral thorax, ecchymosis on upper back, no rashes or lesions, warm and dry Psych: appropriate mood and affect, judgment and insight intact Objective Data Vital Signs Vital Signs: Vital Signs - 24 hr 06/12/22 11:49 06/12/22 14:26 06/12/22 16:14 Temperature 97.2 F L 97.4 F L Pulse Rate 90 85 Respiratory Rate 20 22 H Blood Pressure 124/63 177/73 H Pulse Oximetry 96 96 97 Oxygen Delivery Room Air 06/12/22 17:11 06/12/22 20:00 06/12/22 21:39 Temperature 96.7 F L Pulse Rate 98 80 Respi
[2022-06-13 12:06] LABS: Glucose Point of Care 155 mg/dl (65-105)
[2022-06-13] MEDS: cefTRIAXone 2 GM in SODIUM CHLORIDE 0.9% IV 100 ML 200 ML IVPB (12:10)
[2022-06-13 16:46] LABS: Glucose Point of Care 123 mg/dl (65-105)
[2022-06-13] MEDS: MELATONIN 5 MG TABLET PO (20:12)
[2022-06-13] MEDS: ATORVASTATIN 20 MG TABLET PO (20:12)
[2022-06-13] MEDS: INSULIN GLARGINE (*BKC) 100 UNITS/ML 17 UNITS SUB-Q (20:17)
[2022-06-13 20:29] LABS: Pneumococcal Antigen Urine Not Detected (Not Detected)
[2022-06-13 21:45] LABS: Glucose Point of Care 123 mg/dl (65-105)
[2022-06-14 05:48] VITALS: BP 166/97; PULSE 76; RESP 18; TEMP 36.6; O2SAT 96
[2022-06-14 06:17] LABS: Anion Gap 8 mmol/L (8-16); Blood Urea Nitrogen 50 mg/dL (9-20); Calcium 8.3 mg/dL (8.4-10.2); Carbon Dioxide 30 mmol/L (22-30); Chloride 98 mmol/L (98-107); Estimated CRCL calculation 40 ml/min; Estimated Glomerular Filt Rate 41; Glucose 119 mg/dL (65-110); Potassium 3.2 mmol/L (3.4-5.0); Sodium 136 mmol/L (137-145)
[2022-06-14 06:28] LABS: Vancomycin Trough 15.9 ug/mL (10.0-20.0)
[2022-06-14] MEDS: hydrALAZINE HCL 20 MG/ML VIAL 10 MG IV PUSH (06:39)
[2022-06-14 07:43] LABS: Glucose Point of Care 115 mg/dl (65-105)
[2022-06-14 08:15] VITALS: PULSE 76
[2022-06-14] MEDS: APIXABAN 5 MG TABLET PO (08:15)
[2022-06-14] MEDS: INSULIN ASPART (*BKC) 100 UNITS/ML 6 UNITS SUB-Q (08:15)
[2022-06-14] MEDS: FLUTICASONE PROPIONATE 0.05% NA SPR 16 GM BTL (*BKC) 1 SPRAY NASAL (08:15)
[2022-06-14] MEDS: ASPIRIN 81 MG ENTERIC TABLET PO (08:15)
[2022-06-14] MEDS: FUROSEMIDE INJ 40 MG/4 ML VIAL IV PUSH (08:15)
[2022-06-14] MEDS: METOPROLOL TARTRATE 12.5 MG TABLET PO (08:15)
[2022-06-14] MEDS: amLODIPine BESYLATE 2.5 MG TABLET PO (08:15)
[2022-06-14] MEDS: POTASSIUM CHLORIDE 20 MEQ TABLET 40 MEQ PO (11:14)
[2022-06-14 11:49] LABS: Glucose Point of Care 201 mg/dl (65-105)
--- NOTE | 2022-06-14 11:56 | PM.DS ---
DS: Admitting Diagnosis Discharge Date June 14, 2022 Admitting Diagnosis Cellulitis DS: Discharge Diagnosis Discharge Diagnosis (1) Septicemia: Code(s): A41.9 - Sepsis, unspecified organism Status: Acute Assessment and Plan: Sepsis, present on admission. Now resolved. (2) Cellulitis of left thigh: Code(s): L03.116 - Cellulitis of left lower limb Status: Acute Assessment and Plan: The patient is diabetic and has severe sepsis due to left thigh cellulitis. Initial CT of the abdomen/pelvis at outside facility shows free fluid in the anterior left pelvis and adjacent to left external iliac artery and vein extending anterior to left psoas muscle.? Mild fluid stranding noted in the left inguinal region into the proximal anterior medial thigh that is partially imaged Repeat scan did not show any abscess or any other acute issue. - Repeat CT scan done on June 12, 2022 shows fluid but no definite abscess or any concern for acute issues in the abdomen. Antibiotics on discharge (3) Pulmonary edema: Code(s): J81.1 - Chronic pulmonary edema Status: Acute Assessment and Plan: Patient with episode of flash pulmonary edema last night improved (4) Acute on chronic kidney failure: Code(s): N17.9 - Acute kidney failure, unspecified; N18.9 - Chronic kidney disease, unspecified Status: Acute Assessment and Plan: Monitor (5) Diabetes mellitus with hyperglycemia: Qualifiers: Diabetes mellitus type: type 2 Diabetes mellitus rodent exterminator insulin use: without rodent exterminator use Qualified Code(s): E11.65 - Type 2 diabetes mellitus with hyperglycemia Code(s): E11.65 - Type 2 diabetes mellitus with hyperglycemia Status: Acute Assessment and Plan: Continue insulin. Monitor blood sugars (6) Permanent atrial fibrillation with rapid ventricular response: Code(s): I48.21 - Permanent atrial fibrillation Status: Acute Assessment and Plan: Monitor (7) Rib fracture: Code(s): S22.39XA - Fracture of one rib, unspecified side, initial encounter for closed fracture Status: Acute Assessment and Plan: Secondary to fall Imaging at outside facility showed acute nondisplaced fractures of the left anterior 7th and anterolateral 6th rib with mild subcutaneous contusion Supportive care Incentive spirometry (8) Peripheral artery disease: Code(s): I73.9 - Peripheral vascular disease, unspecified Status: Acute Assessment and Plan: Patient is status post right lower extremity fem-pop bypass Reports recent ultrasound of right lower extremity that confirmed patency of the graft No pain in lower extremities DS: Summary Hospital Course Hospital Course: Patient was admitted for sepsis secondary to cellulitis. Improved significantly with IV antibiotics will transition to oral on discharge. Time Spent with Patient Time attestation: Total time spent providing and/or coordinating discharge services: Exam Narrative: General: Well-nourished, well-appearing 86-year-old male, sitting up in bed, comfortable, NARD Neuro: awake, alert and oriented x4, speech clear, no focal neuro deficits noted HEENMT: normocephalic, atraumatic, EOMI, sclerae anicteric, moist oral mucosa Respiratory: Bibasilar crackles, able to speak in complete sentences, minimally increased work of breathing Cardio: regular rate, regular rhythm with S1-S2 Abdomen: nondistended, normoactive bowel sounds, soft, nontender to palpation Extremities: Chronic appearing discoloration of bilateral lower extremities, left medial thigh with blanchable faint pink erythema, no warmth or tenderness to palpation, area is not firm or fluctuant Skin: Ecchymosis of left lateral thorax, ecchymosis on upper back, no rashes or lesions, warm and dry Psych: appropriate mood and affect, judgment and insight intact DS: Aldo
[2022-06-15 21:45] LABS: Legionella pneumophila Ag Ur Not Detected (Not Detected)
== END 2022-06-14 12:35 | disposition home or self-care (01) | DRG 871 ==
LOC: ANHIMU 06-12 12:46 → ANH3MEDSUR 06-12 17:24
PROVIDERS: Physician Assistant; Admitting Provider Internal Medicine; PCP Family Medicine; Visit Provider Chiropractor
DX: A41.9 Sepsis, unspecified organism (principal); J81.0 Acute pulmonary edema; S22.42XA Multiple fractures of ribs, left side, initial encounter for closed fracture; L03.116 Cellulitis of left lower limb; N17.9 Acute kidney failure, unspecified; I48.21 Permanent atrial fibrillation; W07.XXXA Fall from chair, initial encounter; Z20.822 Contact with and (suspected) exposure to COVID-19; R65.20 Severe sepsis without septic shock; I16.0 Hypertensive urgency; R77.8 Other specified abnormalities of plasma proteins; E11.65 Type 2 diabetes mellitus with hyperglycemia; E11.22 Type 2 diabetes mellitus with diabetic chronic kidney disease; I12.9 Hypertensive chronic kidney disease with stage 1 through stage 4 chronic kidney disease, or unspecified chronic kidney disease; N18.9 Chronic kidney disease, unspecified; K74.60 Unspecified cirrhosis of liver; E78.5 Hyperlipidemia, unspecified; E11.51 Type 2 diabetes mellitus with diabetic peripheral angiopathy without gangrene; G47.33 Obstructive sleep apnea (adult) (pediatric); I71.2 Thoracic aortic aneurysm, without rupture; Z66 Do not resuscitate; Z79.82 Long term (current) use of aspirin; Z79.84 Long term (current) use of oral hypoglycemic drugs; Z85.828 Personal history of other malignant neoplasm of skin; Z86.73 Personal history of transient ischemic attack (TIA), and cerebral infarction without residual deficits; Z95.828 Presence of other vascular implants and grafts; Z86.16 Personal history of COVID-19
CPT/HCPCS: 36415; 36600; 71045; 71046; 71275; 74176; 74177; 80048; 80053; 80202; 81001; 82565; 82805; 82948; 83036; 83605; 83735; 84100; 84484; 85025; 85027; 85610; 86140; 87040; 87070; 87086; 87205; 87449; 87804; 87899; 93005; 93971; 94640; 97110; 97161; 97165; 97530; 97535; A9270; C8929; C9803; J0360; J0692; J0696; J1815; J1940; J3370; J7030; Q9957; Q9967; U0003; U0005

== ENCOUNTER → 2023-07-17 08:37 | Outpatient (CLI) | payer MEDICARE, SELFPAY ==
--- NOTE | ~2023-07-17 | MR_ITS ---
EXAMINATION: MR lumbar spine wo con DATE: 07/17/2023 09:17 INDICATION: Radiculopathy, site unspecified. Low back pain. TECHNIQUE: Magnetic resonance imaging (MRI) of the lumbar spine was performed without intravenous con trast. Sequences included sagittal T2-weighted FSE, sagittal T2-weighted FS FSE, sagittal T1-weighted FSE, and axial T2-weighted FSE. COMPARISON: None FINDINGS: There is 8 degrees levocurvature of thoracolumbar spine. There is 3 mm retrolisthesis of L1 on L2 and L2 on L3 and 4 mm anterolisthesis of L4 on L5. There is mild chronic anterior wedging of T 12 and L1 vertebral bodies. There is mildly decreased disc height at T11-T12, moderately decreased di sc height at T12-L1, severely decreased disc height at L1-L2, L2-L3, and L3-L4, and moderately decrea sed disc height at L4-L5. There is severely decreased disc height at L5-S1 with interbody fusion. The re is hypertrophy of the ligamentum flavum from L1-L2 through L4-L5. The distal spinal cord signal in tensity is normal. The conus medullaris is at L1-L2. The following disc levels are specifically discu ssed: L1-L2: The disc is bulging and has an annular fissure. There is severe right and moderate left facet joint osteoarthritis. There is moderate right and mild left neural foraminal stenosis. There is mild central canal stenosis. L2-L3: The disc is bulging. There is severe bilateral facet joint osteoarthritis. There is moderate b ilateral neural foraminal stenosis. There is moderate central canal stenosis. L3-L4: The disc is bulging and has an annular fissure. There is severe bilateral facet joint osteoart hritis. There is moderate bilateral neural foraminal stenosis. There is mild central canal stenosis. There is moderate stenosis of left lateral recess. L4-L5: The disc is bulging and has an annular fissure. There is severe bilateral facet joint osteoart hritis. There is moderate bilateral neural foraminal stenosis. There is moderate central canal stenos is. L5-S1: The disc is bulging. There is severe bilateral facet joint osteoarthritis. There is mild bilat eral neural foraminal stenosis. There is mild central canal stenosis. IMPRESSION: 1. Severe lumbar spondylosis. Reviewed, dictated and finalized at location E.
== END ==
PROVIDERS: PCP Physician Assistant Surgical; Visit Provider Physician Assistant Surgical
DX: M47.26 Other spondylosis with radiculopathy, lumbar region (principal)
CPT/HCPCS: 72148